=== PATIENT | male | born 1970 | race Caucasian/White ===

== ENCOUNTER 2016-12-06 20:11 | Emergency (ER) | payer SELFPAY ==
[~2016-12-06] VITALS: Ht 175.3 cm; Wt 87.1 kg
[2016-12-06 20:20] VITALS: BP 112/64
== END 2016-12-07 02:50 | disposition left against medical advice (07) ==
LOC: ER 20:16
DX: R61 Generalized hyperhidrosis (principal); T36.95XA Adverse effect of unspecified systemic antibiotic, initial encounter; Y92.9 Unspecified place or not applicable; Z53.21 Procedure and treatment not carried out due to patient leaving prior to being seen by health care provider

== ENCOUNTER 2025-11-02 10:35 | Inpatient (IN) | payer BC, OTHER ==
[~2025-11-02] VITALS: Ht 175.3 cm; Wt 74.6 kg
[2025-11-02 11:05] VITALS: PULSE 71; RESP 18; O2SAT 96
--- NOTE | 2025-11-02 11:07 | ED.PDOC ---
HPI Comments 55 year old male with PMHx cardiovascular issues of presents to the emergency department for chief complaint of chest pain that began several weeks ago. In the ED, Pt describes the pain as tightness in the chest, pressure, and non- radiating pain that stays local to the lower left pectoral of the chest. Pt denies associated symptoms of dizziness, fever, nausea, chills, or shortness of breath. Pt's blood pressure is slightly elevated at 130/85 however Pt's vitals are otherwise stable. Pt does not note any exacerbating or relieving factors and denies any other associated symptoms at this time. Chief Complaint: Chest Pain Time Seen by MD: 11:05 Reviewed Notes: Nurses Notes Allergies: Coded Allergies: Penicillins (Verified Allergy, Unknown, 11/02/25) Information Source: Patient Mode of Arrival: Ambulatory Severity: Mild Timing: Weeks Duration: Since onset Prehospital treatment: None Location: Chest (L) Radiation: No Radiation Quality: Pressure Onset: At Rest Cardiac Risk Factors: None PE Risk Factors: None History of: None Modifying Factors: Nothing Associated Signs and Symptoms: Other (Pressure) Constitutional: denies: chills, diaphoresis, fatigue, fever, malaise, sweats, weakness, others EENTM: denies: blurred vision, double vision, ear bleeding, ear discharge, ear drainage, ear pain, ear ringing, eye pain, eye redness, hearing loss, mouth pain, mouth swelling, nasal discharge, nose bleeding, nose congestion, nose pain, photophobia, tearing, throat pain, throat swelling, voice changes, others Respiratory: denies: cough, hemoptysis, orthopnea, SOB at rest, shortness of breath, SOB with excertion, stridor, wheezing, others Cardiovascular: reports: chest pain, others (pressure) Gastrointestinal: denies: abdomen distended, abdominal pain, blood streaked bowels, constipated, diarrhea, dysphagia, difficulty swallowing, hematemesis, melena, nausea, poor appetite, poor fluid intake, rectal bleeding, rectal pain, vomiting, others Genitourinary: denies: burning, dysuria, flank pain, frequency, hematuria, incontinence, penile discharge, penile sore, pain, testicle pain, testicle swelling, urgency, others Neurological: denies: dizziness, fainting, headache, left sided numbness, left sided weakness, numbness, paresthesia, pre-existing deficit, right sided numbness, right sided weakness, seizure, speech problems, tingling, tremors, weakness, others Musculoskeletal: denies: back pain, gout, joint pain, joint swelling, muscle pain, muscle stiffness, neck pain, others Integumetry: denies: bruises, change in color, change in hair/nails, dryness, laceration, lesions, lumps, rash, wounds, others Allergic/Immunocompromised: denies: Difficulty Healing, Frequent Infections, Hives, Itching, others Hematologic/Lymphatic: denies: anemia, blood clots, easy bleeding, easy bruising, swollen glands, others Endocrine: denies: excessive hunger, excessive sweating, excessive thirst, excessive urination, flushing, intolerance to cold, intolerance to heat, unexplained weight gain, unexplained weight loss, others Psychiatric: denies: anxiety, bipolar disorder, depression, hopeless, panic disorder, schizophrenia, sleepless, suicidal, others All Other Systems: Reviewed and Negative Physical Exam General Appearance: No Apparent Distress, Normal HEENT: Normal ENT Inspection, Pharynx Normal, TMs Normal Neck: Full Range of Motion, Non-Tender, Normal, Normal Inspection Respiratory: Chest Non-Tender, Lungs Clear, No Accessory Muscle Use, No Respiratory Distress, Normal Breath Sounds Cardiovascular: No Edema Breast Exam: Deferred Gastrointestinal: No Organomegaly, Non Tender, No Pulsatile Mass, Normal Bowel Sounds, Soft Genitalia: Deferred Pelvic: Deferred Rectal: Deferred Extremities: No calf tenderness, Normal capillary refill, Normal inspection, Normal range of motion, Non-tender, No pedal edema Neurologic: Alert, tubular splitting machine tender II-XII nml as Tested, No Motor Deficits, Normal Affect, Normal Mood, No Sensory Deficits Cerebellar Function: NOT DONE Reflexes: NOT DONE Skin: Normal Color Lymphatic: NOT DONE Was a procedure done? Was a procedure done?: No CP Differential Dx Differential Diagnosis: A-fib X-Ray, Labs, Meds, VS Vital Signs Date Time Temp Pulse Resp B/P (MAP) Pulse Ox O2 Delivery O2 Flow Rate FiO2 11/02/25 12:00 71 11/02/25 11:38 68 11/02/25 11:05 97.8 71 18 128/76 (93) 96 97.8 11/02/25 11:05 71 11/02/25 11:05 71 18 96 Room Air* 0 21 12/18/25 10:41 62 11/02/25 10:36 97.2 90 18 130/85 99 97.2 Lab Test 11/02/25 11:58 11/02/25 11:44 11/02/25 11:00 11/02/25 10:58 Range/Units Troponin I High Sensitivity Pending < 3 L </=54 ng/L POC Glucose 396 H 70-106 mg/dl Urine Color Light-yellow Yellow Urine Clarity Clear Clear Urine pH 7.5 5.0-9.0 Urine Specific [place] 1.036 H 1.001-1.035 Urine Protein Negative Negative Urine Ketones 1+ H Negative Urine Blood Negative Negative /uL Urine Nitrite Negative Negative Urine Bilirubin Negative Negative Urine Urobilinogen Normal Negative mg/dL Urine Leukocyte Esterase Negative Negative /uL Urine RBC 1 0 - 3 /hpf Urine Microscopic WBC < 1 0-3 /HPF Urine Squamous Epithelial Cells None seen <5 /hpf Urine Bacteria None seen None Seen /hpf Urine Glucose 4+ H Normal mg/dL White Blood Count 5.9 4.4-10.8 10^3/uL Red Blood Count 5.04 4.5-5.90 10^6/uL Hemoglobin 16.3 13.5-17.5 g/dL Hematocrit 46.1 41.0-53.0 % Mean Corpuscular Volume 91.6 80.0-100.0 fL Mean Corpuscular Hemoglobin 32.4 H 28.0-32.0 pg Mean Corpuscular Hemoglobin Concent 35.4 32.0-36.0 g/dL Red Cell Distribution Width 12.5 11.8-14.3 % Platelet Count 250 140-450 10^3/uL Mean Platelet Volume 8.0 6.9-10.8 fL Neutrophils (%) (Auto) 67.8 37.0-80.0 % Lymphocytes (%) (Auto) 23.8 10.0-50.0 % Monocytes (%) (Auto) 7.4 0.0-12.0 % Eosinophils (%) (Auto) 0.5 0.0-7.0 % Basophils (%) (Auto) 0.5 0.0-2.0 % Neutrophils # (Auto) 4.0 1.6-8.6 10 ^3/uL Lymphocytes # (Auto) 1.4 0.4-5.4 10 ^3/uL Monocytes # (Auto) 0.4 0-1.3 10 ^3/uL Eosinophils # (Auto) 0 0-0.8 10 ^3/uL Basophils # (Auto) 0 0-0.2 10 ^3/uL Nucleated Red Blood Cells 0.1 % Sodium Level 139 136-145 mmol/L Potassium Level 4.1 3.5-5.1 mmol/L Chloride Level 99 98-107 mmol/L Carbon Dioxide Level 29 20-31 mmol/L Anion Gap 11 5-15 Blood Urea Nitrogen 10 9-23 mg/dL Creatinine 1.08 0.700-1.30 mg/dL Glomerular Filtration Rate Calc 81 >90 mL/min BUN/Creatinine Ratio 9.3 L 10.0-20.0 Serum Glucose 441 *H 74-106 mg/dL Calcium Level 9.8 8.7-10.4 mg/dL Current Medications Medications (Trade) Dose Ordered Sig/Miley Route Start Time Stop Time Status Last Admin Sodium Chloride 1,000 ml @ 1,000 mls/hr Q1H ONCE IV 11/02/25 12:00 11/02/25 12:59 11/02/25 11:54 Time of 1ST Reevaluation: 11:35 Reevaluation 1ST: Unchanged Patient Education/Counseling: Diagnosis, Treatment Family Education/Counseling: No Family Present SEPSIS Sepsis Screen Date sepsis recognized/suspect: Nov 02, 2025 Time Sepsis recognized/suspect: 1038 Recent Procedure: No On Antibiotic Therapy: No Respiratory Rate >20: No Heart Rate >90: No Temp<36 C (96.8 F) or >38.3 C: No SBP <90 or MAP <65 mmHG: No New Acute Mental Status Change: No Is the patient on CPAP, BIPAP,: No Physician Orders Chest Portable (11/02/25 10:47) Electrocardigram (11/02/25 10:47) Troponin-I Hs (11/02/25 11:47) Troponin-I Hs (11/02/25 13:47) Electrocardigram (11/02/25 11:47) Electrocardigram (11/02/25 13:47) Sodium Chloride 0.9% (11/02/25 12:00) Insulin R (Human) (Insulin R) (11/02/25 12:30) Vital Signs Date Time Temp Pulse Resp B/P (MAP) Pulse Ox O2 Delivery O2 Flow Rate FiO2 11/02/25 12:00 71 11/02/25 11:38 68 11/02/25 11:05 97.8 71 18 128/76 (93) 96 97.8 11/02/25 11:05 71 11/02/25 11:05 71 18 96 Room Air* 0 21 11/02/25 10:41 62 11/02/25 10:36 97.2 90 18 130/85 99 97.2 Laboratory Tests Test 11/02/25 10:58 White Blood Count 5.9 10^3/uL (4.4-10.8) Medications Medications Dose Ordered Sig/Miley Route Start Time Stop Time Status Last Admin Dose Admin Sodium Chloride 1,000 ml @ 1,000 mls/hr Q1H ONCE IV 11/02/25 12:00 11/02/25 12:59 11/02/25 11:54 Departure 1 Departure Time of Disposition: 12:24 (Patient presented with chest pain that was concerning for possible STEMI, ACS, PE, Pneumonia, Muscle Strain, COPD, Dissection. Data: 1. I ordered and reviewed the result of at least 3 labs including a CBC, BMP, and Troponin. 2. I independently interpreted the following tests: EKG which shows sinus arrhythmia and Chest X-ray which shows benign chest.Risk:This patient has a high risk of morbidity due to further diagnostic testing or treatment and may suffer from an acute cardiac or respiratory disorder. Workup reveals concern for ACS and patient should be admitted for further workup and possible expert consultation. ) Impression: Primary Impression: Acute chest pain Additional Impression: Uncontrolled diabetes mellitus Disposition: ADMITTED INPATIENT Admit to: Tele Condition: Guarded Critical Care Note Critical Care Time?: No Stability Stability form required: No Heart Score Heart Score: Heart Score Response (Comments) Value History Moderate Suspicious 1 EKG Repolarization Disturb 1 Age 45-64 1 Risk Factors 1 or 2 risk factors 1 Troponin Normal limit 0 Total 4 I personally scribed for FLORA GERARDO MD ([email or web address]) on 11/02/25 at 11:07. Electronically submitted by Ewa Barnard ([email or web address]). I personally scribed for FLORA GERARDO MD ([email or web address]) on 11/02/25 at 11:12. Electronically submitted by Ewa Barnard ([email or web address]). I personally scribed for FLORA GERARDO MD ([email or web address]) on 11/02/25 at 11:39. Electronically submitted by Geri Garcia ([email or web address]). I personally scribed for FLORA GERARDO MD ([email or web address]) on 11/02/25 at 11:59. Electronically submitted by Yoko Wagner ([email or web address]). FLORA GERARDO MD Nov 02, 2025 11:07
[2025-11-02 11:11] LABS: Hematocrit 46.1 % (41.0-53.0); Hemoglobin 16.3 g/dL (13.5-17.5); Mean Corpuscular Hemoglobin 32.4 pg (28.0-32.0); Mean Corpuscular Volume 91.6 fL (80.0-100.0); Nucleated Red Blood Cells % 0.1 %
[2025-11-02 11:30] LABS: Chloride 99 mmol/L (98-107); Potassium 4.1 mmol/L (3.5-5.1); Sodium 139 mmol/L (136-145)
[2025-11-02 11:31] LABS: Anion Gap 11 (5-15); Carbon Dioxide 29 mmol/L (20-31)
[2025-11-02 11:32] LABS: Calcium 9.8 mg/dL (8.7-10.4)
[2025-11-02 11:37] LABS: BUN/Creatinine Ratio 9.3 (10.0-20.0); Blood Urea Nitrogen 10 mg/dL (9-23)
[2025-11-02 11:40] LABS: Glucose 441 mg/dL (74-106)
--- NOTE | 2025-11-02 11:49 | DVH ---
CHEST RADIOGRAPH INDICATION: cp TECHNIQUE: Single frontal view of the chest was obtained COMPARISON: None FINDINGS: Lines and Tubes: None Lungs: No focal consolidation. Pleura: No effusion. No pneumothorax. Cardiomediastinal contours: Unremarkable Bones: No acute osseous abnormality. IMPRESSION: 1. No acute cardiopulmonary disease.
[2025-11-02] MEDS: SODIUM CHLORIDE 0.9% 1,000 ML IV ONE (11:54)
[2025-11-02 12:14] LABS: Urine Protein, UAD Negative (Negative)
[2025-11-02] MEDS: InsuLIN REG 1unit/0.01ml Soln (100units/ml) SC ONE (12:44)
[2025-11-02] MEDS ORDERED: MORPHINE SULFATE 4 MG/ML SYR/VIAL IV PRN (14:00)
[2025-11-02] MEDS ORDERED: ACETAMINOPHEN 325 MG TAB PO PRN (14:00)
[2025-11-02] MEDS ORDERED: DEXTROSE (50%) 50ML SYRG IV PRN (14:00)
[2025-11-02] MEDS ORDERED: NITROGLYCERIN 0.4 MG SL TAB SL PRN ×2 (14:00)
[2025-11-02] MEDS ORDERED: ONDANSETRON HCL 4 MG/2 ML VIAL IV PRN (14:00)
--- NOTE | 2025-11-02 14:02 | DVHHP2 ---
History of Present Illness Reason for Visit: chest pain History of Present Illness 55-year-old male with a past medical history significant for type 2 diabetes mellitus and hyperlipidemia, who presents with midsternal chest pain and hyperglycemia. The patient reports that due to an insurance change, he has been without his medications for approximately five weeks, including his long-acting insulin (18 units every morning but does not remember the name) and statin (20 mg nightly). Over the last day, he developed midsternal chest tightness radiating to the left side of his chest, associated with shortness of breath. He denies diaphoresis, nausea, vomiting, syncope, lower extremity swelling, or prior similar episodes. He has no known prior cardiac history. In the emergency department, laboratory evaluation revealed severe hyperglycemia (glucose 441) without evidence of DKA. CBC was unremarkable, CMP otherwise unremarkable, troponin negative, and urinalysis showed glucose without infection. Chest x-ray demonstrated no acute cardiopulmonary process. The patient was given insulin in the ED with improvement in glucose levels. Given his chest pain, risk factors, and uncontrolled diabetes, he is admitted for cardiac workup and glycemic management. Past Medical History See HPI above Past Surgical History See HPI above Family History Reviewed, non-contributory to the management of this case. Past Social History The patient lives at home, denies smoking, alcohol or illicit drugs abuse. Review of Systems Constitutional: No: Fever, Chills, Sweats, Weakness, Malaise, Other Eyes: No: Pain, Vision change, Conjunctivae inflammation, Eyelid inflammation, Other, Redness ENT: No: Ear pain, Ear discharge, Nose pain, Nose discharge, Nose congestion, Mouth pain, Mouth swelling, Throat pain, Throat swelling, Other Respiratory: No: Cough, Dry, Shortness of breath, SOB with excertion, Wheezing, Hemoptysis, Pleuritic Pain, Sputum, Wheezing, Other Cardiovascular: Chest Pain; No: Palpitations, Orthopnea, Paroxysmal Noc. Dyspnea, Edema, Lt Headedness, Other Gastrointestinal: No: Nausea, Vomiting, Abdominal Pain, Diarrhea, Constipation, Melena, Hematochezia, Other Genitourinary: No Dysuria, No Frequency, No Incontinence, No Hematuria, No Retention, No Other Musculoskeletal: No: other, neck pain, shoulder pain, arm pain, back pain, hand pain, leg pain, foot pain Skin: No: Rash, Lesions, Jaundice, Bruising, Other Neurological: No: Weakness, Numbness, Incoordination, Change in speech, Confusion, Seizures, Other Allergies: Coded Allergies: Penicillins (Verified Allergy, Unknown, 11/02/25) Medications Current Medications Medications Dose Ordered Sig/Miley Route Start Time Stop Time Status Last Admin Dose Admin Aspirin 81 mg DAILY PO 11/03/25 10:00 Atorvastatin Calcium 40 mg HS PO 11/02/25 22:00 Morphine Sulfate 2 mg Q30MP PRN IV 11/02/25 14:00 Acetaminophen 325 mg Q4HP PRN PO 11/02/25 14:00 Docusate Sodium 100 mg DAILY PO 11/03/25 10:00 Ondansetron HCl 4 mg Q4HP PRN IV 11/02/25 14:00 UNV Enoxaparin Sodium 40 mg DAILY SC 11/03/25 10:00 UNV Nitroglycerin 0.4 mg Q5MINP PRN SL 11/02/25 14:00 Diagnostic Test (Pha) 1 strip ACHS 11/02/25 17:00 Insulin Human Regular HS SC 11/02/25 22:00 Insulin Human Regular AC SC 11/02/25 17:00 Dextrose 50 ml UD PRN IV 11/02/25 14:00 Insulin Glargine 10 units HS SC 11/02/25 22:00 Exam Vital Signs Vital Signs Date Time Temp Pulse Resp B/P (MAP) Pulse Ox O2 Delivery O2 Flow Rate FiO2 11/02/25 13:00 63 10 126/72 (90) 97 11/02/25 11:05 97.8 97.8 11/02/25 11:05 Room Air* 0 21 General Appearance: Alert, Oriented X3, Cooperative, No acute distress HEENT: Atraumatic, PERRLA, EOMI, Mucous membr. moist/pink Respiratory: Clear to auscultation, Normal air movement Cardiovascular: Regular rate, Normal S1, Normal S2, No murmurs Abdominal: Normal bowel sounds, Soft, No tenderness, No hepatospenomegaly, No masses Extremities: No clubbing, No cyanosis, No edema, Normal pulses, No tenderness/swelling Skin: No rashes, No breakdown, No significant lesion Neuro: Normal gait, Normal speech, Strength at 5/5 X4 ext, Normal tone, Sensation intact Psych/Mental Status: Mental status NL, Mood NL Labs/Xrays Chest x-ray unremarkable I reviewed labs, imaging CT scan abdomen pelvis, EKG and all diagnostic studies on this patient from ED records and the medical chart Labs Test 11/02/25 13:51 11/02/25 12:37 11/02/25 11:00 11/02/25 10:58 Range/Units POC Glucose 348 H 70-106 mg/dl Urine Color Light-yellow Yellow Urine Clarity Clear Clear Urine pH 7.5 5.0-9.0 Urine Specific [place] 1.036 H 1.001-1.035 Urine Protein Negative Negative Urine Ketones 1+ H Negative Urine Blood Negative Negative /uL Urine Nitrite Negative Negative Urine Bilirubin Negative Negative Urine Urobilinogen Normal Negative mg/dL Urine Leukocyte Esterase Negative Negative /uL Urine RBC 1 0 - 3 /hpf Urine Microscopic WBC < 1 0-3 /HPF Urine Squamous Epithelial Cells None seen <5 /hpf Urine Bacteria None seen None Seen /hpf Urine Glucose 4+ H Normal mg/dL White Blood Count 5.9 4.4-10.8 10^3/uL Red Blood Count 5.04 4.5-5.90 10^6/uL Hemoglobin 16.3 13.5-17.5 g/dL Hematocrit 46.1 41.0-53.0 % Mean Corpuscular Volume 91.6 80.0-100.0 fL Mean Corpuscular Hemoglobin 32.4 H 28.0-32.0 pg Mean Corpuscular Hemoglobin Concent 35.4 32.0-36.0 g/dL Red Cell Distribution Width 12.5 11.8-14.3 % Platelet Count 250 140-450 10^3/uL Mean Platelet Volume 8.0 6.9-10.8 fL Neutrophils (%) (Auto) 67.8 37.0-80.0 % Lymphocytes (%) (Auto) 23.8 10.0-50.0 % Monocytes (%) (Auto) 7.4 0.0-12.0 % Eosinophils (%) (Auto) 0.5 0.0-7.0 % Basophils (%) (Auto) 0.5 0.0-2.0 % Neutrophils # (Auto) 4.0 1.6-8.6 10 ^3/uL Lymphocytes # (Auto) 1.4 0.4-5.4 10 ^3/uL Monocytes # (Auto) 0.4 0-1.3 10 ^3/uL Eosinophils # (Auto) 0 0-0.8 10 ^3/uL Basophils # (Auto) 0 0-0.2 10 ^3/uL Nucleated Red Blood Cells 0.1 % Sodium Level 139 136-145 mmol/L Potassium Level 4.1 3.5-5.1 mmol/L Chloride Level 99 98-107 mmol/L Carbon Dioxide Level 29 20-31 mmol/L Anion Gap 11 5-15 Blood Urea Nitrogen 10 9-23 mg/dL Creatinine 1.08 0.700-1.30 mg/dL Glomerular Filtration Rate Calc 81 >90 mL/min BUN/Creatinine Ratio 9.3 L 10.0-20.0 Serum Glucose 441 *H 74-106 mg/dL Calcium Level 9.8 8.7-10.4 mg/dL SEPSIS Sepsis Screen Date sepsis recognized/suspect: Nov 02, 2025 Time Sepsis recognized/suspect: 1104 Recent Procedure: No On Antibiotic Therapy: No Respiratory Rate >20: No Heart Rate >90: No Temp<36 C (96.8 F) or >38.3 C: No SBP <90 or MAP <65 mmHG: No New Acute Mental Status Change: No Is the patient on CPAP, BIPAP,: No Physician Orders Chest Portable (11/02/25 10:47) Electrocardigram (11/02/25 10:47) Troponin-I Hs (11/02/25 13:47) Electrocardigram (11/02/25 11:47) Admit (11/02/25 13:47) Code Status (11/02/25 13:47) Vital Signs .PER UNIT PROTOCOL (11/02/25 13:47) Municipal Services Manager (11/02/25 13:47) May Elevate Hob ____ Degrees (11/02/25 13:47) Cardiac Diet-2gna,Lofat,Lochol (11/02/25 Dinner) Aspirin Chewable Tablet (11/03/25 10:00) Atorvastatin (Lipitor) (11/02/25 22:00) Morphine Sulfate Injection (11/02/25 14:00) Acetaminophen Tablet (Tylenol Tablet) (11/02/25 14:00) Docusate Sodium Capsule (Colace Capsule) (11/03/25 10:00) Pulse Oximeter Check (11/02/25 13:47) Complete Blood Count (11/03/25 04:00) Comprehensive Metabolic Panel (11/03/25 04:00) Echo 2d Mode Cardiac Dop (11/02/25 13:47) Ondansetron Hcl (Zofran) (11/02/25 14:00) Magnesium (11/02/25 13:47) Electrocardigram (11/02/25 13:47) Enoxaparin Sodium (Lovenox) (11/03/25 10:00) Cardiac Rehabilitation - Outpa (11/02/25 ) Nitroglycerin Sublingual (Ntrostat Subli (11/02/25 14:00) Stat Ekg For Chest Pain (11/02/25 13:47) Notify Of Changes From Base (11/02/25 13:47) Medical Records Coordinator For 24 Hours (11/02/25 13:47) Emergency Dysrhythmia Protocol (11/02/25 13:47) Rhythm Strips Once Every Shift (11/02/25 13:47) Oxygen By Nasal Cannula (11/02/25 13:47) Glucose Blood (Accu-Chek Comfort Curve T (11/02/25 17:00) Insulin R (Human) (Insulin R) (11/02/25 22:00) Insulin R (Human) (Insulin R) (11/02/25 17:00) Dextrose 50% Syringe (11/02/25 14:00) Insulin Lantus (Glargine) (Lantus) (11/02/25 22:00) Hemoglobin A1c (11/02/25 13:47) Vital Signs Date Time Temp Pulse Resp B/P (MAP) Pulse Ox O2 Delivery O2 Flow Rate FiO2 11/02/25 13:00 63 10 126/72 (90) 97 11/02/25 12:00 71 11/02/25 11:38 68 11/02/25 11:05 97.8 71 18 128/76 (93) 96 97.8 11/02/25 11:05 71 11/02/25 11:05 71 18 96 Room Air* 0 21 11/02/25 10:41 62 11/02/25 10:36 97.2 90 18 130/85 99 97.2 Laboratory Tests Test 11/02/25 10:58 White Blood Count 5.9 10^3/uL (4.4-10.8) Medications Medications Dose Ordered Sig/Miley Route Start Time Stop Time Status Last Admin Dose Admin Insulin Human Regular 10 units ONCE ONCE SC 11/02/25 12:30 11/02/25 12:42 DC 11/02/25 12:44 10 UNITS Sodium Chloride 1,000 ml @ 1,000 mls/hr Q1H ONCE IV 11/02/25 12:00 11/02/25 12:59 DC 11/02/25 11:54 1,000 MLS/HR Assessment/Plan Assessment/Plan 55-year-old male admitted for chest pain with uncontrolled hyperglycemia in the setting of medication nonadherence due to insurance lapse, requiring cardiac evaluation and insulin management. acute Chest pain, atypical rule out acute coronary syndrome Midsternal chest tightness radiating to left chest Troponin negative on initial evaluation Chest x-ray unremarkable Telemetry monitoring Echocardiogram ordered Cardiology consult for further evaluation Continue serial troponins ordered asa and atorvastin Uncontrolled type 2 diabetes mellitus with hyperglycemia Glucose 441 No DKA Resume basal insulin lantus 18 units qhs Sliding-scale insulin coverage Diabetic education Address medication access prior to discharge Medication nonadherence due to insurance lapse Off insulin and statin for 5 weeks Case management/social work consult for medication access Hyperlipidemia Resume statin FEN / PPx Fluids: IV fluids Electrolytes: Monitor BMP Nutrition: Cardiac/diabetic diet DVT Prophylaxis: SCDs GI Prophylaxis: Not indicated since no hx of gerds or gi bleed Disposition Admit to telemetry for completion of cardiac workup, glycemic control, and coordination of medication access. Plan discussed with: Patient My Orders Orders - LIZZETH PATEL DNP Procedure Category Date Status Time Admit ADMIT 11/02/25 Transmitted 13:47 Code Status CODE 11/02/25 Transmitted 13:47 Vital Signs CHIDI 11/02/25 In Process 13:47 Municipal Services Manager CHIDI 11/02/25 In Process 13:47 May Elevate Hob ____ CHIDI 11/02/25 In Process Degrees 13:47 Cardiac DIET 11/02/25 Transmitted Diet-2gna,Lofat,Lochol Dinner Aspirin Chewable PHA 11/03/25 In Process Tablet 10:00 Atorvastatin (Lipitor) PHA 11/02/25 In Process 22:00 Morphine Sulfate PHA 11/02/25 In Process Injection 14:00 Acetaminophen Tablet PHA 11/02/25 In Process (Tylenol Tablet) 14:00 Docusate Sodium PHA 11/03/25 In Process Capsule (Colace 10:00 Pulse Oximeter Check RT 11/02/25 Logged 13:47 Complete Blood Count LAB 11/03/25 Verified 04:00 Comprehensive LAB 11/03/25 Verified Metabolic Panel 04:00 Echo 2d Mode Cardiac US 11/02/25 Logged DOP 13:47 Ondansetron Hcl PHA 11/02/25 Logged (Zofran) 14:00 Magnesium LAB 11/02/25 In Process 13:47 Electrocardigram EKG 11/02/25 Logged 13:47 Enoxaparin Sodium PHA 11/03/25 Logged (Lovenox) 10:00 Cardiac CHIDI 11/02/25 In Process Rehabilitation - Outpa Nitroglycerin PHA 11/02/25 In Process Sublingual (Ntrostat 14:00 Stat Ekg For Chest CHIDI 11/02/25 In Process Pain 13:47 Notify Of Changes [facility]I 11/02/25 In Process From Base 13:47 Medical Records Coordinator For CHIDI 11/02/25 In Process 24 Hours 13:47 Emergency Dysrhythmia CH[facility]I 11/02/25 In Process Protocol 13:47 Rhythm Strips Once CH[facility]I 11/02/25 In Process Every Shift 13:47 Oxygen By Nasal RT 11/02/25 Transmitted Cannula 13:47 Glucose Blood PHA 11/02/25 In Process (Accu-Chek Comfort 17:00 Insulin R (Human) PHA 11/02/25 In Process (Insulin R) 22:00 Insulin R (Human) PHA 11/02/25 In Process (Insulin R) 17:00 Dextrose 50% Syringe PHA 11/02/25 In Process 14:00 Insulin Lantus PHA 11/02/25 In Process (Glargine) (Lantus) 22:00 Hemoglobin A1c LAB 11/02/25 In Process 13:47 Date of Service: Nov 02, 2025 Billing Provider: LIZZETH PATEL DNP Common Visit Codes: [id number] INP/OBS CARE (HIGH) LIZZETH PATEL DNP Nov 02, 2025 14:02
[2025-11-02 15:18] VITALS: BP 129/78; PULSE 66; RESP 17; TEMP 98.7; O2SAT 98
[2025-11-02] MEDS ORDERED: INSLISPI SC (16:03)
[2025-11-02] MEDS ORDERED: ATOR20TA PO (16:03)
[2025-11-02] MEDS: InsuLIN REG 1unit/0.01ml Soln (100units/ml) SC SCH ×2 (17:00→21:23)
[2025-11-02] MEDS: ACCU-CHEK COMFORT CURVE STRIP VI SCH (17:16)
--- NOTE | 2025-11-02 18:36 | ECG ---
[facility] Test Date: 2025-11-02 Test Time: 11:35:21 Pat Name: KATT DENNY Department: [facility] ED Patient ID: [id number] Room: 0287T Gender: M Ancillary Services Manager: KADIE : 1970 Requested By: FLORA GERARDO Order Number: [id number] Reading MD: Measurements Intervals [place] Rate: 68 P: 38 SD: 136 QRS: -1 QRSD: 95 T: -3 QT: 376 QTc: 400 Interpretive Statements Sinus rhythm Probable anteroseptal infarct, old Borderline T abnormalities, inferior leads Baseline wander in lead(s) V2 Please click the below link to view image of tracing.
--- NOTE | 2025-11-02 18:57 | ECG ---
[facility] Test Date: 2025-11-02 Test Time: 10:41:47 Pat Name: KATT DENNY Department: ED Room: 0287T Gender: M Registrar Assistant: DAYANNA : 1970 Requested By: FLORA GERARDO Order Number: [id number] Reading MD: Measurements Intervals [place] Rate: 62 P: 53 IA: 132 QRS: -1 QRSD: 102 T: -26 QT: 381 QTc: 387 Interpretive Statements Sinus rhythm RSR' in V1 or V2, right VCD or RVH Abnormal T, consider ischemia, inferior leads Baseline wander in lead(s) V2 Please click the below link to view image of tracing.
[2025-11-02 20:00] VITALS: PULSE 72
[2025-11-02 21:00] VITALS: BP 136/78; PULSE 70; RESP 17; TEMP 97.6; O2SAT 97
[2025-11-02] MEDS: ATORVASTATIN 20 MG TAB PO SCH (21:22)
[2025-11-02] MEDS: INSULIN LANTUS (GLARGINE) 1 /0.01ml (100units/ml) SC SCH (21:24)
[2025-11-03] VITALS (8 sets, daily range): BP systolic 109–143; BP diastolic 63–79; PULSE 58–75; RESP 16–18; TEMP 97.7–98.4; O2SAT 97–99
[2025-11-03 07:14] LABS: Hematocrit 41.5 % (41.0-53.0); Hemoglobin 14.8 g/dL (13.5-17.5); Mean Corpuscular Hemoglobin 32.5 pg (28.0-32.0); Mean Corpuscular Volume 90.8 fL (80.0-100.0); Nucleated Red Blood Cells % 0.0 %
[2025-11-03 07:27] LABS: Alanine Aminotransferase 16 U/L (7-40); Albumin 3.8 g/dL (3.2-4.8); Alkaline Phosphatase 67 U/L (46-116); Anion Gap 11 (5-15); BUN/Creatinine Ratio 11.7 (10.0-20.0); Bilirubin, Total 0.8 mg/dL (0.2-1.0); Blood Urea Nitrogen 11 mg/dL (9-23); Calcium 8.9 mg/dL (8.7-10.4); Carbon Dioxide 27 mmol/L (20-31); Chloride 103 mmol/L (98-107); Sodium 141 mmol/L (136-145); Total Protein 6.1 g/dL (5.7-8.2)
[2025-11-03 07:30] LABS: Glucose 147 mg/dL (74-106); Potassium 3.4 mmol/L (3.5-5.1)
--- NOTE | 2025-11-03 09:48 | DVHPNRES ---
Progress Note Date Seen: Nov 03, 2025 Resident Creating Document: HAILY GUTIÉRREZ RESIDENT Has the PT tested + for MRSA If YES, has PT been informed?: No Medical Necessity Reason Pt with a Central, PICC or Fol: No Subjective Review of Systems Marlo Mosquera is a 55-year-old male with a past medical history significant for type 2 diabetes mellitus and hyperlipidemia. The patient came to [facility] with the chief complain of 3 weeks of intermittent midsternal chest pain episodes, 5/10, pressure like, episodes last approximated 1 hour, irradiated to the left shoulder, that improved with 2 aspirins. On further questioning, the patient reports that due to an insurance change, he has been without his medications for approximately five weeks, including his long-acting insulin (18 units every morning but does not remember the name) and statin (20 mg nightly). Over the last day, he developed midsternal chest tightness radiating to the left side of his chest, associated with shortness of breath. He denies diaphoresis, nausea, vomiting, syncope, lower extremity swelling, or prior similar episodes. He has no known prior cardiac history. In the emergency department, laboratory evaluation revealed severe hyperglycemia (glucose 441) without evidence of DKA. CBC was unremarkable, CMP otherwise unremarkable, troponin negative, and urinalysis showed glucose without infection. Chest x-ray demonstrated no acute cardiopulmonary process. The patient was given insulin in the ED with improvement in glucose levels. Given his chest pain, risk factors, and uncontrolled diabetes, he was admitted for cardiac workup and glycemic management. Past Medical History See HPI above Past Surgical History See HPI above Family History Reviewed, non-contributory to the management of this case. Past Social History The patient lives at home, denies smoking, alcohol or illicit drugs abuse. Hospital Course: On 11/03/25, the patient was evaluated and examined at bedside. VS, labs, telemetry and chart was reviewed. Troponin are negative. The patient reports chest pressure has improved with analgesia. New EKG showed no ST abnormalities. Blood glucose has stabilized, anion gap is closed. ECHO was performed, report is still pending at this time. We will continue following the progress of this patient. ROS: Constitutional: No: Fever, Chills, Sweats, Weakness, Malaise, Other Eyes: No: Pain, Vision change, Conjunctivae inflammation, Eyelid inflammation, Other, Redness ENT: No: Ear pain, Ear discharge, Nose pain, Nose discharge, Nose congestion, Mouth pain, Mouth swelling, Throat pain, Throat swelling, Other Respiratory: No: Cough, Dry, Shortness of breath, SOB with excertion, Wheezing, Hemoptysis, Pleuritic Pain, Sputum, Wheezing, Other Cardiovascular: Chest Pain 5/10; No: Palpitations, Orthopnea, Paroxysmal Noc. Dyspnea, Edema, Lt Headedness, Other Gastrointestinal: No: Nausea, Vomiting, Abdominal Pain, Diarrhea, Constipation, Melena, Hematochezia, Other Genitourinary: No Dysuria, No Frequency, No Incontinence, No Hematuria, No Retention, No Other Musculoskeletal: No: other, neck pain, shoulder pain, arm pain, back pain, hand pain, leg pain, foot pain Skin: No: Rash, Lesions, Jaundice, Bruising, Other Neurological: No: Weakness, Numbness, Incoordination, Change in speech, Confusion, Seizures, Other Objective vital signs Vital Sign Date Time Temp Pulse Resp B/P (MAP) Pulse Ox O2 Delivery O2 Flow Rate FiO2 11/03/25 07:40 Room Air* 0 21 11/03/25 05:00 97.9 59 18 109/69 (82) 99 97.9 Total Intake and Output 11/02/25 11/02/25 11/03/25 15:00 23:00 07:00 Intake Total 1000 ml 0 ml 800 ml Balance 1000 ml 0 ml 800 ml medications Current Medications Medications Dose Ordered Sig/Miley Route Start Time Stop Time Status Last Admin Dose Admin Aspirin 81 mg DAILY PO 11/03/25 10:00 Atorvastatin Calcium 40 mg HS PO 11/02/25 22:00 11/02/25 21:22 40 MG Morphine Sulfate 2 mg Q30MP PRN IV 11/02/25 14:00 Acetaminophen 325 mg Q4HP PRN PO 11/02/25 14:00 Docusate Sodium 100 mg DAILY PO 11/03/25 10:00 Ondansetron HCl 4 mg Q4HP PRN IV 11/02/25 14:00 Enoxaparin Sodium 40 mg DAILY SC 11/03/25 10:00 Nitroglycerin 0.4 mg Q5MINP PRN SL 11/02/25 14:00 Diagnostic Test (Pha) 1 strip ACHS 11/02/25 17:00 11/03/25 06:00 1 STRIP Insulin Human Regular HS SC 11/02/25 22:00 11/02/25 21:23 10 UNITS Insulin Human Regular AC SC 11/02/25 17:00 11/03/25 06:12 2 UNITS Dextrose 50 ml UD PRN IV 11/02/25 14:00 Insulin Glargine 10 units HS SC 11/02/25 22:00 11/02/25 21:24 10 UNITS Examination General Appearance: Alert, Oriented X3, Cooperative, No acute distress HEENT: Atraumatic, PERRLA, EOMI, Mucous membr. moist/pink Respiratory: Clear to auscultation, Normal air movement Cardiovascular: Regular rate, Normal S1, Normal S2, No murmurs Abdominal: Normal bowel sounds, Soft, No tenderness, No hepatospenomegaly, No masses Extremities: No clubbing, No cyanosis, No edema, Normal pulses, No tenderness/swelling Skin: No rashes, No breakdown, No significant lesion Neuro: Normal gait, Normal speech, Strength at 5/5 X4 ext, Normal tone, Sensation intact Psych/Mental Status: Mental status NL, Mood NL laboratory and microbiology Laboratory Tests 11/03/25 06:25 Test 11/03/25 06:25 Range/Units Serum Glucose 147 #H 74-106 mg/dL Problem List/Assessment/Plan Problem List/Assessment/Plan #Acute Chest pain, atypical rule out acute coronary syndrome #Rule out Angina #Rule out costocondritis Midsternal chest tightness radiating to left chest Troponin negative on initial evaluation Chest x-ray unremarkable Telemetry monitoring Echocardiogram ordered Cardiology consult for further evaluation Continue serial troponins ordered asa and atorvastin #Uncontrolled type 2 diabetes mellitus with hyperglycemia Glucose 441, 147 No DKA Resume basal insulin lantus 18 units qhs Sliding-scale insulin coverage Diabetic education Address medication access prior to discharge #Medication nonadherence due to insurance lapse Off insulin and statin for 5 weeks Case management/social work consult for medication access #Chronic Hyperlipidemia Atorvastatin 40mg po at night Diet Low carb diet DVT prophylaxis:SCD GI prophylaxis Protonix Code status: full code Disposition: [facility] PCP: Dr. Jovanni Cohen Patient's status and plan discussed with the patient >30min. Case discussed with Dr. Ta Plan discussed with: Patient My Orders My Orders Orders - HAILY GUTIÉRREZ RESIDENT Procedure Category Date Status Time Electrocardigram EKG 11/03/25 Logged 09:40 Urine LAB 11/03/25 Logged Protein/Creatinine Lipid Panel LAB 11/03/25 Logged 09:41 Thyroid Stimulating LAB 11/03/25 Transmitted Hormone 09:41 PTPTT LAB 11/03/25 Logged 09:41 Prothrombin Time W/ LAB 11/03/25 Logged INR 09:41 B-Type Natriuretic LAB 11/03/25 Logged Peptide 09:41 *Rn [employer] M[employer] Operator REFER 11/03/25 Transmitted Referral 09:41 Visit Coding STANDARD RES Billing Provider: SPENCER HODGES MD Date of Service if different f: Nov 03, 2025 Common Visit Codes: 06185-CYHDRRODWA INP/OBS CARE(HIGH) HAILY GUTIÉRREZ RESIDENT Nov 03, 2025 09:48
[2025-11-03] MEDS: POTASSIUM EFFERVESENT TAB 25 MEQ PO ONE (09:59)
[2025-11-03] MEDS: ENOXAPARIN SOD 40 MG/0.4 ML SYRINGE SC SCH (10:00)
[2025-11-03] MEDS: DOCUSATE SOD 100 MG CAP PO SCH (10:00)
[2025-11-03 10:19] LABS: Cholesterol 229 mg/dL (< 200); HDL Cholesterol 35 mg/dL (40-59); Triglycerides 200 mg/dL (< 150)
--- NOTE | 2025-11-03 10:29 | ECG ---
[facility] Test Date: 2025-11-03 Test Time: 10:28:06 Pat Name: KATT DENNY Department: Room: 0287T A Gender: M Heeler: lv : 1970 Requested By: HAILY GUTIÉRREZ Order Number: [id number] Reading MD: Measurements Intervals [place] Rate: 69 P: 54 OH: 142 QRS: 1 QRSD: 94 T: 22 QT: 376 QTc: 403 Interpretive Statements Sinus rhythm Low voltage, precordial leads Please click the below link to view image of tracing.
[2025-11-03 10:50] LABS: INR 0.97 (0.9-1.15); Partial Thromboplastin Time 26.2 SEC (24.5-34.5); Prothrombin Time 10.3 sec (9.3-11.8)
[2025-11-04 01:00] VITALS: BP 153/89; PULSE 60; RESP 17; TEMP 97.8; O2SAT 99
[2025-11-04 05:00] VITALS: BP 134/80; PULSE 62; RESP 18; TEMP 98; O2SAT 99
[2025-11-04 05:46] LABS: Anion Gap 8 (5-15); Carbon Dioxide 30 mmol/L (20-31); Chloride 102 mmol/L (98-107); Potassium 3.8 mmol/L (3.5-5.1); Sodium 140 mmol/L (136-145)
[2025-11-04 05:48] LABS: Calcium 9.4 mg/dL (8.7-10.4)
[2025-11-04 05:53] LABS: BUN/Creatinine Ratio 9.7 (10.0-20.0); Blood Urea Nitrogen 10 mg/dL (9-23)
[2025-11-04 05:54] LABS: Glucose 144 mg/dL (74-106)
[2025-11-04 08:00] VITALS: PULSE 64; PULSE 75; RESP 20; O2SAT 98
[2025-11-04 09:07] VITALS: BP 133/74; PULSE 64; RESP 20; TEMP 97.7; O2SAT 98
[2025-11-04] MEDS ORDERED: ASPI-498 PO (10:33)
[2025-11-04] MEDS ORDERED: FAMO-12 PO (10:33)
--- NOTE | 2025-11-04 11:50 | DVHSR ---
APPROVED REPORT EXAM: Two-dimensional and M-mode echocardiogram with Doppler and color Doppler. Blood Pressure: 126/72 mmHg INDICATION Chest Pain RISK FACTORS Height: 5' 9", Weight: 158 DIMENSIONS LVDd 4.0 (3.8-5.7cm) LA (2D) 3.2 (1.9-4.0cm) Aortic Root 2.9 (2.0-3.7cm) LVDs 2.8 (2.5-4.0cm) LA (MM) (1.9-4.0cm) Aortic Cusp Exc 1.9 (1.5-2.0cm) EF (%) 57.0 (55-70%) Rt. Atrium 2.9 (1.9-4.0cm) Asc. Aorta cm IVSd 0.9 (0.7-1.1cm) RV (D) (1.8-2.4cm) PWd 1.0 (0.7-1.1cm) Mitral Valve Mitral Mitral Stenosis E wave 0.80m/s MV Mean GR. mmHg A wave 0.80m/s MV Peak GR. mmHg E/A ratio 1.0 2D MVA cm2 Aortic Valve Aortic Valve Aortic Stenosis V1 0.90m/s AO Mean GR. 3mmHg V2 1.20m/s AO Peak GR. 6mmHg LVOT Diameter 2.2 (1.8-2.4cm) Doppler MELANIA 2.85cm2 Pulmonic Valve V2 0.60m/s Conclusion 1-Normal right and left ventricle systolic function with estimated ejection fraction of -%. Normal LV wall motion. Normal LV diastolic function 2-No significant valvular pathology was seen
--- NOTE | 2025-11-04 16:21 | DVHDSRES ---
Discharge Summary Date of Admission Resident Creating Document: PARMINDER GILLIAM RESIDENT Nov 02, 2025 at 13:47 Date of Discharge: Nov 04, 2025 Admitting Diagnosis Acute chest pain rule out acute coronary Labs/Diagnostic Data: Laboratory Results Test 11/04/25 05:55 11/04/25 04:59 11/03/25 06:25 11/02/25 13:51 POC Glucose 181 mg/dl (70-106) Sodium Level 140 mmol/L (136-145) Potassium Level 3.8 mmol/L (3.5-5.1) Chloride Level 102 mmol/L (98-107) Carbon Dioxide Level 30 mmol/L (20-31) Anion Gap 8 (5-15) Blood Urea Nitrogen 10 mg/dL (9-23) Creatinine 1.03 mg/dL (0.700-1.30) Glomerular Filtration Rate Calc 85 mL/min (>90) BUN/Creatinine Ratio 9.7 (10.0-20.0) Serum Glucose 144 mg/dL (74-106) Calcium Level 9.4 mg/dL (8.7-10.4) White Blood Count 7.5 10^3/uL (4.4-10.8) Red Blood Count 4.57 10^6/uL (4.5-5.90) Hemoglobin 14.8 g/dL (13.5-17.5) Hematocrit 41.5 % (41.0-53.0) Mean Corpuscular Volume 90.8 fL (80.0-100.0) Mean Corpuscular Hemoglobin 32.5 pg (28.0-32.0) Mean Corpuscular Hemoglobin Concent 35.8 g/dL (32.0-36.0) Red Cell Distribution Width 12.5 % (11.8-14.3) Platelet Count 248 10^3/uL (140-450) Mean Platelet Volume 8.0 fL (6.9-10.8) Neutrophils (%) (Auto) 59.0 % (37.0-80.0) Lymphocytes (%) (Auto) 29.9 % (10.0-50.0) Monocytes (%) (Auto) 10.0 % (0.0-12.0) Eosinophils (%) (Auto) 0.6 % (0.0-7.0) Basophils (%) (Auto) 0.5 % (0.0-2.0) Neutrophils # (Auto) 4.4 10 ^3/uL (1.6-8.6) Lymphocytes # (Auto) 2.2 10 ^3/uL (0.4-5.4) Monocytes # (Auto) 0.8 10 ^3/uL (0-1.3) Eosinophils # (Auto) 0 10 ^3/uL (0-0.8) Basophils # (Auto) 0 10 ^3/uL (0-0.2) Nucleated Red Blood Cells 0.0 % Prothrombin Time 10.3 sec (9.3-11.8) Prothrombin Time INR 0.97 (0.9-1.15) Activated Partial Thromboplast Time 26.2 SEC (24.5-34.5) Total Bilirubin 0.8 mg/dL (0.2-1.0) Aspartate Amino Transferase (AST) 15 U/L (13-40) Alanine Aminotransferase (ALT) 16 U/L (7-40) Alkaline Phosphatase 67 U/L (46-116) B-Type Natriuretic Peptide 43.39 pg/mL (0-100) Total Protein 6.1 g/dL (5.7-8.2) Albumin 3.8 g/dL (3.2-4.8) Triglycerides Level 200 mg/dL (< 150) Cholesterol Level 229 mg/dL (< 200) LDL Cholesterol 169 mg/dL (< 100) HDL Cholesterol 35 mg/dL (40-59) Thyroid Stimulating Hormone (TSH) 0.93 uIU/mL (0.55-4.78) Troponin I High Sensitivity < 3 ng/L (</=54) Test 11/02/25 11:00 11/02/25 10:58 Urine Color Light-yellow (Yellow) Urine Clarity Clear (Clear) Urine pH 7.5 (5.0-9.0) Urine Specific [place] 1.036 (1.001-1.035) Urine Protein Negative (Negative) Urine Ketones 1+ (Negative) Urine Blood Negative /uL (Negative) Urine Nitrite Negative (Negative) Urine Bilirubin Negative (Negative) Urine Urobilinogen Normal mg/dL (Negative) Urine Leukocyte Esterase Negative /uL (Negative) Urine RBC 1 /hpf (0 - 3) Urine Microscopic WBC < 1 /HPF (0-3) Urine Squamous Epithelial Cells None seen /hpf (<5) Urine Bacteria None seen /hpf (None Seen) Urine Glucose 4+ mg/dL (Normal) Hemoglobin A1c 13.2 % A1C (<5.7) Magnesium Level 2.1 mg/dL (1.6-2.6) Other Laboratory Tests 11/04/25 04:59 11/03/25 06:25 Brief Hx & Hospital Course: Katt Mosquera is a 55-year-old male with a past medical history significant for type 2 diabetes mellitus and hyperlipidemia. The patient came to [facility] with the chief complain of 3 weeks of intermittent midsternal chest pain episodes, 5/10, pressure like, episodes last approximated 1 hour, irradiated to the left shoulder, that improved with 2 aspirins. On further questioning, the patient reports that due to an insurance change, he has been without his medications for approximately five weeks, including his long-acting insulin (18 units every morning but does not remember the name) and statin (20 mg nightly). Over the last day, he developed midsternal chest tightness radiating to the left side of his chest, associated with shortness of breath. He denies diaphoresis, nausea, vomiting, syncope, lower extremity swelling, or prior similar episodes. He has no known prior cardiac history. In the emergency department, laboratory evaluation revealed severe hyperglycemia (glucose 441) without evidence of DKA. CBC was unremarkable, CMP otherwise unremarkable, troponin negative, and urinalysis showed glucose without infection. Chest x-ray demonstrated no acute cardiopulmonary process. The patient was given insulin in the ED with improvement in glucose levels. Given his chest pain, risk factors, and uncontrolled diabetes, h Hospital course -during hospital course patient was treated conservatively, symptoms improved, no chest pain or shortness of breaths complaint on day of discharge. Echo 2D revealed LVEF 57%, patient was discharged with a aspirin, atorvastatin. [facility] Patient was advised to get a referral for outpatient cardiac stress test for further evaluation and care. Patient was hemodynamically stable on discharge. All questions answered General Appearance: Alert, Oriented X3, Cooperative, No acute distress HEENT: Atraumatic, PERRLA, EOMI, Mucous membr. moist/pink Respiratory: Clear to auscultation, Normal air movement Cardiovascular: Regular rate, Normal S1, Normal S2, No murmurs Abdominal: Normal bowel sounds, Soft, No tenderness, No hepatospenomegaly, No masses Extremities: No clubbing, No cyanosis, No edema, Normal pulses, No tenderness/swelling Skin: No rashes, No breakdown, No significant lesion Neuro: Normal gait, Normal speech, Strength at 5/5 X4 ext, Normal tone, Sensation intact Psych/Mental Status: Mental status NL, Mood NL laboratory and microbiology Assessment # acute chest pain likely due to costochondritis/musculoskeletal #Acute Chest pain, atypical ruled out acute coronary syndrome #Rule out Angina #Rule out costocondritis #Uncontrolled type 2 diabetes mellitus with hyperglycemia #Medication nonadherence due to insurance lapse #Chronic Hyperlipidemia Plan Aspirin 81 mg p.o. daily Atorvastatin as prescribed Resume other home medication Patient is advised to follow up at [facility] clinic/PCP for referral for Cardiology referral for cardiac stress test Patient was counseled about the importance of med compliance Plan of care discussed with Dr. Ta Operations or Procedures [place] [address] Ph: [phone] DIAGNOSTIC IMAGING Diagnostic Imaging Report : [id number] Signed PATIENT: KATT DENNY ACCT: [id number] UNIT: [id number] : 1970 LOC: [facility] ROOM / BED: [facility] / A AGE / SEX: 55 / M ADM STATUS: ADM IN SERVICE 1347 ORDERING PHYSICIAN: LIZZETH PATEL DNP PROCEDURE(s): [facility] - ECHO 2D MODE CARDIAC DOP REASON: CHEST PAIN ORDER NUMBER(s): [id number], ACCESSION NUMBER(s): [id number] APPROVED REPORT EXAM: Two-dimensional and M-mode echocardiogram with Doppler and color Doppler. Blood Pressure: 126/72 mmHg INDICATION Chest Pain RISK FACTORS Height: 5' 9", Weight: 158 DIMENSIONS LVDd 4.0 (3.8-5.7cm) LA (2D) 3.2 (1.9-4.0cm) Aortic Root 2.9 (2.0- 3.7cm) LVDs 2.8 (2.5-4.0cm) LA (MM) (1.9-4.0cm) Aortic Cusp Exc 1.9 (1.5- 2.0cm) EF (%) 57.0 (55-70%) Rt. Atrium 2.9 (1.9-4.0cm) Asc. Aorta cm IVSd 0.9 (0.7-1.1cm) RV (D) (1.8-2.4cm) PWd 1.0 (0.7-1.1cm) Mitral Valve Mitral Mitral Stenosis E wave 0.80m/s MV Mean GR. mmHg A wave 0.80m/s MV Peak GR. mmHg E/A ratio 1.0 2D MVA cm2 Aortic Valve Aortic Valve Aortic Stenosis V1 0.90m/s AO Mean GR. 3mmHg V2 1.20m/s AO Peak GR. 6mmHg LVOT Diameter 2.2 (1.8-2.4cm) Doppler MELANIA 2.85cm2 Pulmonic Valve V2 0.60m/s Conclusion 1-Normal right and left ventricle systolic function with estimated ejection fraction of -%. Normal LV wall motion. Normal LV diastolic function 2-No significant valvular pathology was seen SIGNED BY: MAICOL KELLY MD SIGNED DATE/TIME: 11/04/25 1150 CC: Condition at Discharge: Stable Final Diagnosis/Problems List Acute chest pain likely due to costochondritis/musculoskeletal Diabetes mellitus type 2 with hyperglycemia Discharge Disposition: Home Discharge Instruct/Medications Diet: Consistent carbohydrate, Cardiac 2g Na,low cholest Activity: No Restrictions, As Tolerated Follow [facility]erral[facility]-for [facility] test Medications: As Prescribed Scheduled Aspirin (Aspirin 81), 81 MG PO DAILY Famotidine (Famotidine), 20 MG PO DAILY Miscellaneous Medications Atorvastatin Calcium (Lipitor), 20 MG PO, (Reported) Insulin Lispro (Human) (Humalog), Unknown Dose SC, (Reported) Discharge Statement: "Patient was advised to return to the ER or call 911 if any headaches, dizziness, shortness of breath, chest pain, abdominal pain, bleeding, fevers, or worsening of medical condition. Patient was counseled about treatment plan, medications, possible side effects, patientverbalized understanding. All questions were answered to the best of my ability. This discharge took greater then 30 minutes in planning, reviewing documentation, counseling the patient, and discussing with other team members." ASSESSMENT ASSESSMENT Assessment Acute chest pain likely due to costochondritis/musculoskeletal Diabetes mellitus type 2 with hyperglycemia Visit Coding STANDARD RES Billing Provider: SPENCER HODGES MD Date of Service if different f: Nov 04, 2025 Common Visit Codes: 28313-XES/OBS DISCH DAY >30min PARMINDER GILLIAM RESIDENT Nov 04, 2025 16:21
== END 2025-11-04 12:15 | disposition home or self-care (01) | DRG 206 ==
LOC: ER 10:35 → OVERFLOW 13:47 → TELE-WESTW 15:29 → WEST WING 11-04 08:51
PROVIDERS: ADMIT Student in an Organized Health Care Education/Training Program; ATTEND Student in an Organized Health Care Education/Training Program
DX: M94.0 Chondrocostal junction syndrome [Tietze] (principal); E11.65 Type 2 diabetes mellitus with hyperglycemia; E78.5 Hyperlipidemia, unspecified; I20.9 Angina pectoris, unspecified; Z88.0 Allergy status to penicillin; Z91.148 Patient's other noncompliance with medication regimen for other reason; Z79.4 Long term (current) use of insulin
CPT/HCPCS: 36415; 71045; 80048; 80053; 80061; 81001; 82962; 83036; 83735; 83880; 84443; 84484; 85025; 85610; 85730; 93005; 93306; G0378; J1815